=== PATIENT | female | born 1980 | race Caucasian/White ===

== ENCOUNTER 2022-04-05 16:02 | Emergency (ER) | payer OTHER ==
[~2022-04-05] VITALS: Ht 162.6 cm; Wt 117.0 kg
[~2022-04-05 16:02] MED LIST: ACETAMINOOPHEN-1 TAB PO; BRONCOTRON-D S473 ML; CATAFLAM50 MG PO; HEPARIN SUBCUTANEO; INTEGRA F CAPS1 EACH PO; KENALOG ORABASE BC; MYCOSTATIN100000 UNI PO; PROVENTIL3 ML/2.5 M IH; PULMICORT1 MG/2 ML; RE CHLORDIAZEP1 EACH PO; SINGULAIR 10MG10 MG PO; SORBUTUSS LIQU473 ML PO; TUSNEL C SYRUP473 ML PO; ZITHROMAX Z PACK PO; ZITHROMAX500 MG PO; [UNRECOGNIZED DRUG - OTHER] MM
[2022-04-05] MEDS ORDERED: SYNTHROID137 MCG PO (16:44)
[2022-04-05] MEDS ORDERED: PROMETRIUM200 MG PO (16:44)
== END 2022-04-05 20:06 | disposition home or self-care (01) ==
LOC: ER 16:02
DX: R51.9 Headache, unspecified (principal)

== ENCOUNTER 2022-10-20 11:29 | Emergency (ER) | payer OTHER ==
[~2022-10-20] VITALS: Ht 160 cm; Wt 106.6 kg
[~2022-10-20 11:29] MED LIST changes: +PROMETRIUM200 MG PO; +SYNTHROID137 MCG PO
[2022-10-20] MEDS ORDERED: ZESTRIL2.5 MG (13:15)
[2022-10-20] MEDS ORDERED: NAPR500T14 (13:16)
[2022-10-20] MEDS ORDERED: BUSPIRONE HCL7.5 MG (13:16)
[2022-10-20] MEDS ORDERED: AMOX-CLAV 875-1 EAC1 PO (17:41)
== END 2022-10-20 17:47 | disposition home or self-care (01) ==
LOC: ER 11:29
DX: R51.9 Headache, unspecified (principal); K13.79 Other lesions of oral mucosa; Z88.8 Allergy status to other drugs, medicaments and biological substances; I10 Essential (primary) hypertension

== ENCOUNTER 2023-06-06 11:58 | Outpatient (CLI) | payer OTHER ==
[~2023-06-06 11:58] MED LIST changes: +AMOX-CLAV 875-1 EAC1 PO; +BUSPIRONE HCL7.5 MG; +NAPR500T14; +ZESTRIL2.5 MG
== END 2023-06-06 12:01 | disposition home or self-care (01) ==
LOC: SONOGRAMA 11:58
PROVIDERS: ATTEND Pathology Anatomic Pathology & Clinical Pathology
DX: D44.0 Neoplasm of uncertain behavior of thyroid gland (principal); C73 Malignant neoplasm of thyroid gland

== ENCOUNTER 2024-04-14 13:29 | Emergency (ER) | payer OTHER ==
[~2024-04-14] VITALS: Ht 160 cm; Wt 98.9 kg
[2024-04-14] MEDS ORDERED: KETOROLAC TROMETHAMINE 60 MG VIAL IM ONE ×2 (14:22→14:30)
[2024-04-14] MEDS ORDERED: DEXAMETHASONE SODIUM PHOSPHATE 4 MG/ML VIAL ONE (14:22)
[2024-04-14] MEDS ORDERED: DEXAMETHASONE SODIUM PHOSPHATE 4 MG/ML VIAL IM ONE (14:30)
== END 2024-04-14 14:49 | disposition home or self-care (01) ==
LOC: ER 13:29
DX: M62.838 Other muscle spasm (principal); G43.909 Migraine, unspecified, not intractable, without status migrainosus; M94.0 Chondrocostal junction syndrome [Tietze]; Z88.3 Allergy status to other anti-infective agents